=== PATIENT | female | born 1970 | race African-American/Black ===

== ENCOUNTER 2016-12-01 09:09 | Observation (INO) | payer SELFPAY ==
[~2016-12-01] VITALS: Ht 152.4 cm; Wt 69.9 kg
[2016-12-01] MEDS ORDERED: VASOPRESSIN 20 UNIT/ML 1ML ONE (09:35)
[2016-12-01 10:02] LABS: BASOPHILS % 2.7 % (0.0-2.0); EOSINOPHILS % 4.9 % (0.0-5.0); HEMATOCRIT. 33.2 % (36.0-48.0); HEMOGLOBIN. 10.6 g/dL (12.0-16.0); LYMPHOCYTES % 45.7 % (20.0-50.0); MEAN CORPUSCULAR HEMOGLOBIN 24.6 pg (28.0-32.0); MEAN CORPUSCULAR VOLUME 77.2 fL (81.0-99.0); MEAN PLATELET VOLUME 8.8 fl (7.4-10.4); MONOCYTES % 7.2 % (2.0-8.0); NEUTROPHILS % 39.5 % (40.0-76.0); PLATELET 124 x1000/uL (130-400); RED CELL DISTRIBUTION WIDTH 34.1 % (11.6-14.6)
[2016-12-01 10:07] LABS: CLARITY URINE CLEAR (CLEAR); COLOR URINE YELLOW (YELLOW); GLUCOSE URINE NEGATIVE (NEGATIVE); KETONES URINE NEGATIVE (NEGATIVE); LEUKOCYTE ESTERASE URINE NEGATIVE (NEGATIVE); NITRITE URINE NEGATIVE (NEGATIVE); OCCULT BLOOD URINE 2+ (NEGATIVE); PH URINE 8.5 (4.5-8.0); PROTEIN URINE NEGATIVE (NEGATIVE); SPECIFIC GRAVITY URINE 1.014 (1.005-1.030); UROBILINOGEN URINE 0.2 E.U./dL (0.2-1.0)
[2016-12-01 10:13] LABS: UCG SCREEN NEGATIVE
[2016-12-01 10:13] LABS: PROTHROMBIN TIME 10.2 sec
[2016-12-01] MEDS ORDERED: MIDAZOLAM HCL 2 MG/2 ML VIAL ONE (10:25)
[2016-12-01] MEDS ORDERED: ROCURONIUM BROMIDE 10MG/ML VIAL 5ML IV ONE (10:27)
[2016-12-01] MEDS ORDERED: CEFAZOLIN SODIUM 1000MG/VIAL ONE (10:27)
[2016-12-01] MEDS ORDERED: PROPOFOL 200MG/20ML VIAL IV ONE (10:27)
[2016-12-01] MEDS ORDERED: LIDOCAINE HCL 1% 20ML VIAL (Pyxis) INJ ONE (10:27)
[2016-12-01] MEDS ORDERED: FENTANYL CITRATE/PF 50MCG/ML 2ML VIAL ONE ×2 (10:28→10:45)
[2016-12-01] MEDS ORDERED: LACTATED RINGERS 1,000 ML IV SCH (10:30)
[2016-12-01] MEDS ORDERED: ONDANSETRON HCL 4MG/2ML VIAL ONE (10:47)
[2016-12-01] MEDS ORDERED: DEXAMETHASONE 4MG/ML 1ML VIAL ONE (10:47)
[2016-12-01] MEDS ORDERED: SODIUM CHLORIDE 0.9% 1,000 ML IV SCH (10:50)
[2016-12-01 11:00] LABS: PLATELET ESTIMATE SLIGHTLY DECREASED
[2016-12-01] MEDS ORDERED: ONDANSETRON HCL 4MG/2ML VIAL IV PRN (11:00)
[2016-12-01] MEDS ORDERED: NEOSTIGMINE METHYLSULFATE 1MG/ML 10 ML VIAL ONE (12:01)
[2016-12-01] MEDS ORDERED: GLYCOPYRROLATE 0.2 MG/ML 2ML VIAL ONE (12:01)
[2016-12-01] MEDS: HYDROMORPHONE HCL/PF 2MG/ML CPJ IV PRN ×4 (12:31→13:03)
[2016-12-01] MEDS: HYDROCODONE/ACETAMINOPHEN 5/325MG TABLET PO PRN ×2 (15:13→20:09)
[2016-12-01 16:00] VITALS: BP 135/80
[2016-12-01 16:15] VITALS: BP 135/80
[2016-12-01] MEDS: DEXT 5%/LACTATED RINGERS 1,000 ML IV SCH (18:22)
[2016-12-01 20:00] VITALS: BP 128/89
[2016-12-02] VITALS (7 sets, daily range): BP systolic 113–143; BP diastolic 70–91
[2016-12-02] MEDS: DEXT 5%/LACTATED RINGERS 1,000 ML IV SCH (05:16)
[2016-12-02] MEDS: HYDROCODONE/ACETAMINOPHEN 5/325MG TABLET PO PRN ×3 (05:16→17:58)
[2016-12-02 08:09] LABS: BASOPHILS % 0.5 % (0.0-2.0); EOSINOPHILS % 0.5 % (0.0-5.0); HEMATOCRIT. 27.5 % (36.0-48.0); HEMOGLOBIN. 8.7 g/dL (12.0-16.0); LYMPHOCYTES % 12.2 % (20.0-50.0); MEAN CORPUSCULAR HEMOGLOBIN 24.4 pg (28.0-32.0); MEAN CORPUSCULAR VOLUME 76.9 fL (81.0-99.0); MONOCYTES % 7.1 % (2.0-8.0); NEUTROPHILS % 79.7 % (40.0-76.0); RED BLOOD CELL COUNT 3.58 mill/uL (4.2-5.4); RED CELL DISTRIBUTION WIDTH 33.3 % (11.6-14.6)
[2016-12-02 09:16] LABS: PLATELET 129 x1000/uL (130-400)
== END 2016-12-02 18:10 | disposition home or self-care (01) ==
LOC: OR 09:09 → 6EST 09:10 → INTOOBSV 09:10 → EDSTATUS 12:20
PROVIDERS: ADMIT Obstetrics & Gynecology Obstetrics; ATTEND Obstetrics & Gynecology Obstetrics
DX: N80.0 Endometriosis of uterus (principal); D25.9 Leiomyoma of uterus, unspecified
CPT/HCPCS: 36415; 58140; 81001; 81025; 85025; 85610; 85730; 88305; G0378; J0690; J1100; J1170; J2250; J2405; J2710; J3010; J3490; J7120; J7121; J2704